=== PATIENT | male | born 1980 | race Caucasian/White ===

== ENCOUNTER 2017-12-03 08:18 | Emergency (ER) | payer OTHER ==
[~2017-12-03] VITALS: Ht 167.6 cm; Wt 82.0 kg
[~2017-12-03 08:18] MED LIST: ASPI1TAB57 PO; ATEN25TA PO; HYDR12.57 PO; METF500T PO; OMEP40CA2 PO; OSEL75 PO; TEMA15CA PO; TRUE METRIX BLO1 KIT
[2017-12-03 08:22] VITALS: BP 131/81; PULSE 89; RESP 16; TEMP 97.7; O2SAT 100
[2017-12-03] MEDS ORDERED: METF500T PO (08:30)
[2017-12-03] MEDS ORDERED: ZITHTAB PO (08:58)
[2017-12-03] MEDS ORDERED: PRED20 PO (08:58)
[2017-12-03] MEDS ORDERED: PHENERGAN W CODEIN PO (08:58)
--- NOTE | 2017-12-03 08:58 | PD ---
HPI Chief Complaint: Cold / Flu Symptoms Time Seen by Provider: 08:48 Travel History International Travel<30 days: No Contact w/Intl Traveler<30days: No Traveled to known affect area: No History of Present Illness HPI 37-year-old male complains of sore throat persistent cough and body ache. Patient states the symptoms started 3 days ago. Patient states the sore throat was in severe pain especially with swallowing and coughing. Patient states the cough is persistent and mostly dry cough. Patient denies any headache. Patient denies any neck pain. Patient denies any chest pain. Patient denies any shortness of breath. Patient denies abdominal pain. PFSH Past Medical History Hx Anticoagulant Therapy: No Cardiovascular Problems: Yes (HTN) Diabetes: Yes Patient Takes Glucophage: Yes Diminished Hearing: No Hypertension: Yes Tetanus Vaccination: Unknown Social History Alcohol Use: No Tobacco Use: No Substance Use: No Allergies-Medications (Allergen,Severity, Reaction): Coded Allergies: penicillin G (Unverified Allergy, Severe, body swell, hives, 12/03/17) Reported Meds & Prescriptions Reported Meds & Active Scripts Active True Metrix Blood Glucose W/Device (Device) 1 Kit Kit Kit .ROUTE DIRECTED Hydrochlorothiazide 12.5 Mg Cap 12.5 Mg PO DAILY Atenolol 25 Mg Tab 12.5 Mg PO DAILY Reported Metformin (Metformin HCl) 500 Mg Tab 500 Mg PO BIDPC Review of Systems General / Constitutional: No: Fever Eyes: No: Visual changes HENT: Positive: Sore Throat, No: Headaches Cardiovascular: No: Chest Pain or Discomfort Respiratory: Positive: Cough, No: Shortness of Breath Gastrointestinal: No: Abdominal Pain Genitourinary: No: Dysuria Musculoskeletal: No: Pain Skin: No Rash Neurologic: No: Weakness Psychiatric: No: Depression Endocrine: No: Polydipsia Hematologic/Lymphatic: No: Easy Bruising Physical Exam Narrative GENERAL: Well-nourished, well-developed patient. SKIN: Focused skin assessment warm/dry. HEAD: Normocephalic. EYES: No scleral icterus. No injection or drainage. TM: Clear. Throat: Mild erythematous. NECK: Supple, trachea midline. No JVD or lymphadenopathy. No meningismus CARDIOVASCULAR: Regular rate and rhythm without murmurs, gallops, or rubs. RESPIRATORY: Breath sounds equal bilaterally. No accessory muscle use. GASTROINTESTINAL: Abdomen soft, non-tender, nondistended. MUSCULOSKELETAL: No cyanosis, or edema. BACK: Nontender without obvious deformity. No CVA tenderness. Neurologic exam normal. Data Data Last Documented VS Vital Signs Date Time Temp Pulse Resp B/P (MAP) Pulse Ox O2 Delivery O2 Flow Rate FiO2 12/03/17 08:22 97.7 89 16 131/81 (98) 100 MDM Medical Decision Making Medical Screen Exam Complete: Yes Emergency Medical Condition: Yes Differential Diagnosis Differential diagnosis including pharyngitis, bronchitis, pneumonia, viral syndrome. Narrative Course 37-year-old male with sore throat and persistent cough and body ache. Diagnosis Primary Impression: Pharyngitis Qualified Codes: J02.9 - Acute pharyngitis, unspecified Additional Impression: Bronchitis Patient Instructions: General Instructions Additional Instructions: Take medications as directed. Tylenol or ibuprofen for aching pain. Follow-up with personal physician. Return if persistent problem or worse. Med/Other Pt SpecificInfo: Prescription(s) given Scripts Prednisone (Prednisone) 20 Mg Tab 20 MG PO BID, #6 TAB 0 Refills Prov: Jorge Ford MD 12/03/17 [Phenergan W Codein] No Conflict Check 10 ML PO Q8HR for Cough, #120 Prov: Jorge Ford MD 12/03/17 Azithromycin (Zithromax Z-Efraín) 250 Mg Dspk 250 MG PO DIRECTED for Infection, #1 DSPK 0 Refills 500 MG (2 tabs) day 1, then 1 tab days 2-5. Prov: Jorge Ford MD 12/03/17 Disposition: 01 DISCHARGE HOME Condition: Stable Jorge Ford MD Dec 03, 2017 08:58
[2017-12-05] MEDS ORDERED: [UNRECOGNIZED DRUG - SUPPLY] (13:01)
[2017-12-05] MEDS ORDERED: BLOOD GLUCOSE T1 TES (13:01)
== END 2017-12-03 09:11 | disposition home or self-care (01) ==
LOC: PHEFT 08:18
DX: J02.9 Acute pharyngitis, unspecified (principal); J40 Bronchitis, not specified as acute or chronic; I10 Essential (primary) hypertension; E11.9 Type 2 diabetes mellitus without complications; Z88.0 Allergy status to penicillin
CPT/HCPCS: 99284

== ENCOUNTER 2018-03-11 09:38 | Emergency (ER) | payer OTHER ==
[~2018-03-11] VITALS: Ht 170.2 cm; Wt 78.0 kg
[~2018-03-11 09:38] MED LIST changes: -ASPI1TAB57 PO; +BLOOD GLUCOSE T1 TES; -OMEP40CA2 PO; -OSEL75 PO; +PHENERGAN W CODEIN PO; +PRED20 PO; -TEMA15CA PO; +ZITHTAB PO; +[UNRECOGNIZED DRUG - SUPPLY]
[2018-03-11 09:40] VITALS: BP 141/81; PULSE 87; RESP 16; TEMP 97.8; O2SAT 100
[2018-03-11] MEDS ORDERED: ZOFR4TAB3 SL (09:53)
[2018-03-11] MEDS ORDERED: PERC5TAB12 PO (09:53)
[2018-03-11] MEDS ORDERED: TAMS5CAP PO (09:53)
--- NOTE | 2018-03-11 09:53 | PD ---
HPI Chief Complaint: Flank/Kidney Pain Time Seen by Provider: 09:46 Travel History International Travel<30 days: No Contact w/Intl Traveler<30days: No Traveled to known affect area: No History of Present Illness HPI 37-year-old male arrives with a history of renal stones. He reports about 4 days ago he developed right flank pain with radiation to groin. He notes minimal pink urine. Today he vomited while at work. He was also diaphoretic. No fever. The pain feels as though someone was hitting him in the side and that is about to double over in pain at some point. PFSH Past Medical History Hx Anticoagulant Therapy: Yes (BABY ASA DAILY) Cardiovascular Problems: Yes (HTN) Diabetes: Yes Diminished Hearing: No Hypertension: Yes Social History Alcohol Use: No Tobacco Use: No Substance Use: No Allergies-Medications (Allergen,Severity, Reaction): Coded Allergies: penicillin G (Unverified Allergy, Severe, body swell, hives, 03/11/18) Reported Meds & Prescriptions Reported Meds & Active Scripts Active Flomax (Tamsulosin HCl) 0.4 Mg Cap 0.4 Mg PO HS Zofran Odt (Ondansetron Odt) 4 Mg Tab 4 Mg SL Q8HR PRN Percocet (Oxycodone-Acetaminophen) 5-325 mg Tab 1-2 Tab PO Q6H PRN Hydrochlorothiazide 12.5 Mg Cap 12.5 Mg PO DAILY Atenolol 25 Mg Tab 12.5 Mg PO DAILY Reported Aspirin EC (Aspirin) 81 Mg Tabdr 81 Mg PO DAILY Omeprazole 20 Mg Tab 20 Mg PO DAILY Metformin (Metformin HCl) 500 Mg Tab 500 Mg PO BIDPC Review of Systems Except as stated in HPI: all other systems reviewed are Neg General / Constitutional: No: Fever Physical Exam Narrative GENERAL: 37-year-old male pleasant well-nourished well-developed mild distress Vital Signs Date Time Temp Pulse Resp B/P (MAP) Pulse Ox O2 Delivery O2 Flow Rate FiO2 03/11/18 09:40 97.8 87 16 141/81 (101) 100 SKIN: Warm and dry. HEAD: Atraumatic. Normocephalic. EYES: Pupils equal and round. No scleral icterus. No injection or drainage. ENT: No nasal bleeding or discharge. Mucous membranes pink and moist. NECK: Trachea midline. No JVD. CARDIOVASCULAR: Regular rate and rhythm. RESPIRATORY: No accessory muscle use. Clear to auscultation. Breath sounds equal bilaterally. GASTROINTESTINAL: There is tenderness to percussion about the right flank. No distention. MUSCULOSKELETAL: Extremities without clubbing, cyanosis, or edema. No obvious deformities. NEUROLOGICAL: Awake and alert. No obvious cranial nerve deficits. Motor grossly within normal limits. Five out of 5 muscle strength in the arms and legs. Normal speech. PSYCHIATRIC: Appropriate mood and affect; insight and judgment normal. Data Data Last Documented VS Vital Signs Date Time Temp Pulse Resp B/P (MAP) Pulse Ox O2 Delivery O2 Flow Rate FiO2 03/11/18 10:55 16 03/11/18 09:58 100 Room Air 03/11/18 09:54 87 03/11/18 09:40 97.8 141/81 (101) Orders Orders Urinalysis - C+S If Indicated (03/11/18 09:40) Basic Metabolic Panel (Bmp) (03/11/18 09:48) Complete Blood Count With Diff (03/11/18 09:48) Urinalysis - C+S If Indicated (03/11/18 09:48) Ct Abd/Pel W/O Iv Contrast (03/11/18 09:48) Iv Access Insert/Monitor (03/11/18 09:48) Ecg Monitoring (03/11/18 09:48) Oximetry (03/11/18 09:48) Ondansetron Inj (Zofran Inj) (03/11/18 10:00) Sodium Chloride 0.9% Flush (Ns Flush) (03/11/18 10:00) Ketorolac Inj (Toradol Inj) (03/11/18 10:00) Ed Discharge Order (03/11/18 12:08) Labs Laboratory Tests Test 03/11/18 10:00 03/11/18 10:05 Urine Collection Type CLEAN CATCH Urine Color YELLOW Urine Turbidity CLEAR Urine pH 6.5 Urine Specific [place] 1.015 Urine Protein NEG mg/dL Urine Glucose (UA) NEG mg/dL Urine Ketones NEG mg/dL Urine Occult Blood NEG Urine Nitrite NEG Urine Bilirubin NEG Urine Urobilinogen 0.2 MG/DL Urine Leukocyte Esterase NEG Urine RBC 0-3 /hpf Urine Squamous Epithelial Cells 0-5 /hpf Microscopic Urinalysis Comment CULT NOT INDICATED Urine Collection Time 10:00 White Blood Count 3.9 TH/MM3 Red Blood Count 5.11 MIL/MM3 Hemoglobin 15.9 GM/DL Hematocrit 45.4 % Mean Corpuscular Volume 88.8 FL Mean Corpuscular Hemoglobin 31.2 PG Mean Corpuscular Hemoglobin Concent 35.1 % Red Cell Distribution Width 12.7 % Platelet Count 273 TH/MM3 Mean Platelet Volume 7.9 FL Neutrophils (%) (Auto) 43.3 % Lymphocytes (%) (Auto) 44.0 % Monocytes (%) (Auto) 9.8 % Eosinophils (%) (Auto) 1.3 % Basophils (%) (Auto) 1.6 % Neutrophils # (Auto) 1.7 TH/MM3 Lymphocytes # (Auto) 1.6 TH/MM3 Monocytes # (Auto) 0.4 TH/MM3 Eosinophils # (Auto) 0.1 TH/MM3 Basophils # (Auto) 0.1 TH/MM3 CBC Comment DIFF FINAL Differential Comment Blood Urea Nitrogen 15 MG/DL Creatinine 0.97 MG/DL Random Glucose 166 MG/DL Calcium Level 9.7 MG/DL Sodium Level 142 MEQ/L Potassium Level 3.6 MEQ/L Chloride Level 106 MEQ/L Carbon Dioxide Level 29.2 MEQ/L Anion Gap 7 MEQ/L Estimat Glomerular Filtration Rate 87 ML/MIN [facility] Medical Decision Making Medical Screen Exam Complete: Yes Emergency Medical Condition: Yes Medical Record Reviewed: Yes Differential Diagnosis Constipation, Gastritis, Acute Cholecystitis, Biliary Colic, Pancreatitis, THAKUR , Hepatitis, Bowel Obstruction, Cystitis, Mesenteric Ischemia, AAA, Appendicitis , Renal Stone/Hydronephrosis, GERD, perforated viscous Narrative Course CBC & BMP Diagram 03/11/18 10:05 Calcium Level 9.7 Last Impressions Abdomen/Pelvis CT 03/11/18 0939 Signed Impressions: Service Date/Time: Sunday, March 11, 2018 10:52 - CONCLUSION: 1. Questionable tiny 1 mm faint stone upper pole right kidney not causing obstruction. 2. Fatty infiltration throughout the liver. 3. Otherwise, unremarkable exam. Silvestre Lockwood MD CT scan shows a tiny right kidney stone nonobstructing which might be the cause of the patient's pink urine. In any case he is medically stable for discharge home. Follow-up with primary care. Diagnosis Primary Impression: Renal stone Referrals: Laila Cabrera MD R2 call for appointment Med/Other Pt SpecificInfo: Prescription(s) given Scripts Tamsulosin (Flomax) 0.4 Mg Cap 0.4 MG PO HS for Manage Prostate Problems, #4 CAP 0 Refills Prov: Venu Mak MD 03/11/18 Ondansetron Odt (Zofran Odt) 4 Mg Tab 4 MG SL Q8HR Y for Nausea/Vomiting, #10 TAB 0 Refills Prov: Venu Mak MD 03/11/18 Oxycodone-Acetaminophen (Percocet) 5-325 mg Tab 1-2 TAB PO Q6H Y for PAIN SCALE 6 TO 10, #15 TAB 0 Refills Prov: Venu Mak MD 03/11/18 Disposition: 01 DISCHARGE HOME Condition: Stable Venu Mak MD March 11, 2018 09:53
[2018-03-11 09:58] VITALS: RESP 16; O2SAT 100
[2018-03-11] MEDS ORDERED: ONDANSETRON HCL 4 MG/2 ML VIAL IVP ONE (10:00)
[2018-03-11] MEDS ORDERED: KETOROLAC TROMETHAMINE 30 MG/ML (IVP) VIAL IVP ONE (10:00)
[2018-03-11] MEDS ORDERED: SODIUM CHLORIDE 0.9% FLUSH 10 ML FLUSH IV FLUSH PRN (10:00)
[2018-03-11] MEDS ORDERED: OMEP20TA93 PO (10:03)
[2018-03-11] MEDS ORDERED: ASPI81TA23 PO (10:03)
[2018-03-11 10:18] LABS: AUTOMATED NEUTROPHIL # 1.7 TH/MM3 (1.8-7.7); BASOPHIL # 0.1 TH/MM3 (0-0.2); BASOPHIL % 1.6 % (0.0-2.0); EOSINOPHIL # 0.1 TH/MM3 (0-0.4); EOSINOPHIL % 1.3 % (0.0-4.0); HEMATOCRIT 45.4 % (39.0-51.0); HEMOGLOBIN 15.9 GM/DL (13.0-17.0); LYMPHOCYTE # 1.6 TH/MM3 (1.0-4.8); MEAN CELL VOLUME 88.8 FL (80.0-100.0); MEAN CORPUSCULAR HEMOGLOBIN 31.2 PG (27.0-34.0); MEAN CORPUSCULAR HGB CONC 35.1 % (32.0-36.0); MEAN PLATELET VOLUME 7.9 FL (7.0-11.0); MONO % 9.8 % (0.0-8.0); MONOCYTE # 0.4 TH/MM3 (0-0.9); NEUT % 43.3 % (16.0-70.0); PLATELET COUNT 273 TH/MM3 (150-450); RED BLOOD COUNT 5.11 MIL/MM3 (4.50-5.90); RED CELL DISTRIBUTION WIDTH 12.7 % (11.6-17.2); WHITE BLOOD COUNT 3.9 TH/MM3 (4.0-11.0)
[2018-03-11 10:19] LABS: BILIRUBIN, URINE NEG (NEG); BLOOD, URINE NEG (NEG); GLUCOSE,URINE NEG (NEG); KETONE, URINE NEG (NEG); NITRITE,URINE NEG (NEG); PH, URINE 6.5 (5.0-8.5); URINE COLOR YELLOW (YELLW/STRAW); URINE LEUKOCYTE ESTERASE NEG (NEG)
[2018-03-11 10:32] LABS: RBC, URINE 0-3 /hpf (0-3); SQUAMOUS EPITHELIAL CELL URINE 0-5 /hpf (0-5)
[2018-03-11 10:44] LABS: BICARBONATE 29.2 MEQ/L (21.0-32.0); CALCIUM 9.7 MG/DL (8.5-10.1)
[2018-03-11 10:48] LABS: CREATININE 0.97 MG/DL (0.60-1.30)
[2018-03-11 10:55] VITALS: RESP 16
--- NOTE | 2018-03-11 11:22 | RADRPT ---
EXAM DATE/TIME: 03/11/2018 10:52 [place] COMPARISON: No previous studies available for comparison. INDICATIONS : Right flank pain. Hematuria. ORAL CONTRAST: No oral contrast ingested. RADIATION DOSE: 6.90 CTDIvol (mGy) MEDICAL HISTORY : Renal calculi. Gastroesophageal reflux disease. Diabetes mellitus type 2.Hypertension. SURGICAL HISTORY : L-spine [place] disc replacement. ENCOUNTER: Initial ACUITY: 2 days PAIN SCALE: 7/10 LOCATION: Right flank TECHNIQUE: Volumetric scanning of the abdomen and pelvis was performed. Using automated exposure control and ad justment of the mA and/or kV according to patient size, radiation dose was kept as low as reasonably achievable to obtain optimal diagnostic quality images. DICOM format image data is available electro nically for review and comparison. The lack of IV contrast limits the diagnosis for certain organ pa thology. FINDINGS: LOWER LUNGS: The visualized lower lungs are clear. LIVER: Homogeneous density without lesion. There is no dilation of the biliary tree. No calcified gallston es. There is fatty infiltration throughout the liver. SPLEEN: Normal size without lesion. PANCREAS: Within normal limits. KIDNEYS: Normal in size and shape. There is no mass or hydronephrosis. Questionable tiny 1 mm stone upper karri e right kidney without obstruction. Otherwise no definite calcified renal stones are seen. The ureter s are unremarkable. ADRENAL GLANDS: Within normal limits. VASCULAR: There is no aortic aneurysm. BOWEL/MESENTERY: The stomach, small bowel, and colon demonstrate no acute abnormality. There is no free intraperitone al air or fluid. The appendix is unremarkable. ABDOMINAL WALL: Within normal limits. RETROPERITONEUM: There is no lymphadenopathy. BLADDER: No wall thickening or mass. REPRODUCTIVE: Within normal limits. INGUINAL: There is no lymphadenopathy or hernia. MUSCULOSKELETAL: Within normal limits for patient age. CONCLUSION: 1. Questionable tiny 1 mm faint stone upper pole right kidney not causing obstruction. 2. Fatty infiltration throughout the liver. 3. Otherwise, unremarkable exam. Silvestre Lockwood MD on March 11, 2018 at 11:17 Board Certified Radiologist. This report was verified electronically.
== END 2018-03-11 12:20 | disposition home or self-care (01) ==
LOC: PHED 09:38
DX: N20.0 Calculus of kidney (principal); I10 Essential (primary) hypertension; E11.9 Type 2 diabetes mellitus without complications
CPT/HCPCS: 74176; 80048; 81001; 85025; 96374; 96375; 99284; J1885; J2405